=== PATIENT | male | born 1955 | race Caucasian/White ===

== ENCOUNTER 2017-09-27 06:44 | Observation (INO) ==
[2017-09-27] MEDS ORDERED: Hyoscyamine 0.5 MG/ML MLS IVP ONE (07:14)
[2017-09-27] MEDS ORDERED: *HR* HYDROmorphone (PF) 1 MG/ML SYRINGE IVP ONE ×2 (07:14→09:03)
[2017-09-27] MEDS ORDERED: Ketorolac 15 MG/ML VIAL IVP ONE (07:14)
[2017-09-27] MEDS ORDERED: Ondansetron 4 MG/2 ML VIAL IVP ONE ×2 (07:19→16:23)
--- NOTE | 2017-09-27 07:20 | Emergency Department Note ---
Disposition Clinical Impression: Acute cholecystitis Cholelithiasis Qualifiers: Cholelithiasis location: gallbladder Cholecystitis presence: with cholecystitis Cholecystitis acuity: acute Biliary obstruction: without biliary obstruction Qualified Code(s): K80.00 - Calculus of gallbladder with acute cholecystitis without obstruction Disposition: Admitted As Inpatient Condition: Fair Referrals: Dillan Thomas MD [Primary Care Provider] - Forms: ED Satisfaction Letter General Adult HPI - General Chief complaint: ED Chest Pain Stated complaint: CP/RUQ pain Time Seen by Provider: 09/27/17 07:13 Source: patient Limitations: no limitations Nursing Notes Reviewed: Yes Vital Signs Reviewed: Yes - History of Present Illness HPI Narrative: 62-year-old male who reports that he was awoken from sleep at 5 AM this morning with sudden onset of right upper quadrant pain. He states that the exact same thing happened a little over one week ago and it resolved on its own after about one hour. He did not seek medical attention. He still has his gallbladder and all of his other abdominal organs. His only past medical history is coronary arterial disease and has had a CABG. He has associated nausea and vomiting. He states he can point exactly where it is hurting in the right upper quadrant. Nothing makes it better or worse. He denies having a fever or any changes in his bowel movements or urination. Radiation: non-radiation Pain Severity: severe Pain Scale: 9 Consistency: constant Improves with: nothing Worsens with: nothing Associated symptoms: Reports: denies other symptoms Treatments Prior to Arrival: none - Related Data Home Medications Medication Instructions Recorded Confirmed Aspirin [Lo-Dose Aspirin EC] 81 mg PO DAILY 05/12/16 09/27/17 Atorvastatin [Lipitor] 40 mg PO HS 05/12/16 09/27/17 Carvedilol 12.5 mg PO BID 09/27/17 09/27/17 Lisinopril [Zestril] 5 mg PO DAILY 09/27/17 09/27/17 Multivits,Ca,Min/Iron/FA/Lycop 1 tab PO DAILY 09/27/17 09/27/17 [Centrum Men's Tablet] Mupirocin 1 appl TP BID 09/27/17 09/27/17 Nitroglycerin [Nitrostat] 0.4 mg SL Q5M PRN 09/27/17 09/27/17 Allergies Allergy/AdvReac Type Severity Reaction Status Date / Time No Known Allergies Allergy Verified 09/10/15 15:41 All systems ED: reviewed and negative except as stated. Constitutional: Denies: fever Eyes: Denies: vision change ENT ED: Denies: throat pain Cardiovascular: Denies: chest pain Respiratory: Denies: cough Gastrointestinal: Reports: abdominal pain, nausea, vomiting Genitourinary: Denies: dysuria Musculoskeletal: Denies: back pain Integumentary: Denies: rash Past Medical History - Past Medical History Medical history: Reports: non-contributory, hyperlipidemia, hypertension, myocardial infarction Surgical history: Reports: coronary bypass (CABG), orthopedic, other - Social History Smoking Status: Never smoker Smokeless Tobacco Status: No Alcohol use: Reports: rarely Drug use: Reports: none Physical Exam - General Limitations: no limitations General appearance: alert, in no apparent distress - Head Head exam: atraumatic - Eye Eye exam: Present: normal appearance, PERRL - ENT ENT exam: normal exam - Neck Neck exam: Present: normal inspection - Chest Chest inspection: Present: normal inspection - Respiratory Respiratory exam: Present: normal lung sounds bilaterally. Absent: respiratory distress - Cardiovascular Cardiovascular exam: Present: regular rate, normal rhythm - Abdominal Exam Abdominal exam: Present: soft, tenderness (Right upper quadrant), [place]'s sign , other (No diffuse abdominal pain or peritonitis). Absent: tenderness at McBurney's Point - Extremities Exam Extremities exam: Present: normal inspection - Neurological Exam Neurological exam: Present: alert, oriented X3 - Skin Skin exam: Present: warm, dry Course Course Narrative: U/S shows thickened gallbladder wall with stones/sludge. No elevate WBC count or fever. LFT's are normal aside from mild elevated alk phos. I called and spoke with Dr Cazares who will evaluate the patient. He is still having pain. Evaluated in the ED by Dr Cazares. Will be admitted to his service. Vital Signs Temperature 97.5 F L 09/27/17 06:45 Pulse Rate 77 09/27/17 06:45 Respiratory Rate 18 09/27/17 06:45 Blood Pressure 212/115 09/27/17 06:45 O2 Sat by Pulse Oximetry 97 09/27/17 06:45 Temperature 97.5 F L 09/27/17 06:45 Pulse Rate 77 09/27/17 09:40 Respiratory Rate 20 09/27/17 09:40 Blood Pressure 192/98 09/27/17 09:40 O2 Sat by Pulse Oximetry 98 09/27/17 09:40 Oxygen Delivery Oxygen Delivery Room Air Medical Decision Making - MDM Narrative Medical decision making narrative: I examined this patient and my medical decision-making was reviewed with the Resident Physician. I agree with the documented findings, disposition and treatment plan as described except to the extent set forth below. Patient seen and evaluated on arrival with Dr. Chavez, agree with his evaluation and treatment plan, I supervised the care of the patient stay. Patient presented this morning with right upper quadrant pain. He says it is difficult to be comfortable. He denies any chest pain at this time he is not vomiting no fever. Benadryl workup on him causing cardiac and abdominal workup and then reassess. He is in agreement with this plan. 0830 hrs.: Labs are back. Waiting on ultrasound. Gallbladder Ultrasound 09/27/17 07:14 IMPRESSION: Cholelithiasis. There is wall thickening of the gallbladder, either due to the contracted state of the gallbladder or wall thickening from underlying inflammatory change from acute or chronic cholecystitis Increased echogenicity throughout the liver suggesting diffuse hepatocellular disease such as fatty infiltration D/ / Eric Mejia MD / Eric Mejia MD Interpreting Provider: Eric Mejia MD 0920 hrs.: surgery is here to see the patient, Dr. Cazares is evaluating at bedside. Gen. 940 hours colon surgery is admitting the patient to their service. Impression as cholelithiasis, and acute right upper quadrant abdominal pain. - Medical Records Medical records reviewed: Yes I reviewed the patient's medical records. - Lab Data Lab results reviewed: Yes I reviewed the patient's lab results. Result diagrams: 09/27/17 06:51 09/27/17 06:51 Lab Results 09/27/17 09/27/17 09/27/17 Range/Units 06:51 06:51 07:52 WBC 9.0 (4.3-11.1) K/mcL RBC 6.11 H (4.19-5.50) M/mcL Hgb 17.4 H (12.9-16.9) g/dL Hct 52.4 H (37.5-50.1) % MCV 85.8 (83.0-100.0) fL MCH 28.5 (28.0-33.3) pg MCHC 33.2 (31.6-35.5) g/dL RDW 12.9 (11.5-14.5) % Plt Count 268 (140-400) K/mcL MPV 10.4 (9.4-12.4) fL Immature Gran % 0.3 (0-4) % Seg Neutrophils % 62.3 % Lymphocytes % 15.6 % Monocytes % 10.8 % Eosinophils % 10.0 % Basophils % 1.0 % Neutrophils # 5.6 (1.6-8.9) K/mcL Lymphocytes # 1.4 (0.6-4.6) K/mcL Monocytes # 1.0 (0.0-1.3) K/mcL Eosinophils # 0.9 H (0.0-0.6) K/mcL Basophils # 0.1 (0.0-0.2) K/mcL Sodium 141 (136-145) mEq/L Potassium 3.8 (3.5-4.5) mEq/L Chloride 103 (98-109) mEq/L Carbon Dioxide 29 (19-29) mEq/L BUN 18 (8-26) mg/dL Creatinine 0.94 (0.72-1.25) mg/dL Est GFR ( Amer) > 60 (> 60) Est GFR (Non-Af Amer) > 60 (> 60) BUN/Creatinine Ratio 19 (6-26) Glucose 124 H (70-99) mg/dL Calculated Osmolality 295 (280-300) Calcium 9.8 (8.6-10.8) mg/dL Total Bilirubin 1.0 (0.2-1.2) mg/dL Direct Bilirubin 0.4 (0.0-0.5) mg/dL Indirect Bilirubin 0.6 (0.0-1.2) mg/dL AST 32 (5-34) Units/L ALT 29 (0-55) Units/L Alkaline Phosphatase 140 H (38-126) Units/L Serum Total Protein 8.8 H (6.0-8.3) g/dL Albumin 4.0 (3.5-5.0) g/dL Globulin 4.8 H (2.4-3.5) g/dL Albumin/Globulin Ratio 0.8 L (1.1-2.2) Lipase 40 (8-78) Units/L Urine Color Yellow (Yellow) Urine Clarity Clear (Clear) Urine pH 6.5 (5.0-8.0) pH Units Ur Specific [place] 1.028 H (1.010-1.025) Urine Protein Negative (Neg-Trace) mg/dL Urine Glucose (UA) Normal (Normal) mg/dL Urine Ketones Trace H (Negative) mg/dL Urine Blood Negative (Negative) Urine Nitrite Negative (Negative) Urine Bilirubin Negative (Negative) Urine Urobilinogen Normal (Normal) mg/dL Ur Leukocyte Esterase Negative (Negative) Ur Culture Indicated? NO (NO) - Radiology Data Radiology results reviewed: Yes I reviewed the patient's radiology results. - EKG Data EKG #1 EKG attestation: Yes I reviewed and interpreted this EKG. EKG shows normal: sinus rhythm Rate: normal Rhythm: NSR [place]/QRS: normal When compared to previous EKG there are: no significant changes Interpretation: no acute changes
[2017-09-27 08:03] LABS: Bilirubin,Urine Negative (Negative); Blood,Urine Negative (Negative); Clarity,Urine Clear (Clear); Color,Urine Yellow (Yellow); Glucose,Urine (UA) Normal (Normal); Ketones,Urine Trace mg/dL (Negative); Leukocyte Esterase,Urine Negative (Negative); Nitrite,Urine Negative (Negative); PH,Urine 6.5 pH Units (5.0-8.0); Protein,Urine Negative (Neg-Trace); Specific Gravity,Urine 1.028 (1.010-1.025); Urobilinogen,Urine Normal (Normal)
[2017-09-27] MEDS ORDERED: Hyoscyamine SL 0.125 MG TAB.SUBL SL ONE (08:03)
[2017-09-27 08:08] LABS: Alanine Aminotransferase 29 Units/L (0-55); Albumin/Globulin Ratio 0.8 (1.1-2.2); Alkaline Phosphatase 140 Units/L (38-126); Aspartate Amino Transferase 32 Units/L (5-34); BUN/Creatinine Ratio 19 (6-26); Blood Urea Nitrogen 18 mg/dL (8-26); Calcium 9.8 mg/dL (8.6-10.8); Carbon Dioxide 29 mEq/L (19-29); Chloride 103 mEq/L (98-109); Globulin 4.8 g/dL (2.4-3.5); Glucose 124 mg/dL (70-99); Lipase 40 Units/L (8-78); Osmolality,Calculated 295 (280-300); Potassium 3.8 mEq/L (3.5-4.5); Sodium 141 mEq/L (136-145); Total Protein 8.8 g/dL (6.0-8.3); eGFR For African Americans > 60 (> 60); eGFR For Non-African Americans > 60 (> 60)
[2017-09-27 08:20] LABS: Basophils # 0.1 K/mcL (0.0-0.2); Eosinophils # 0.9 K/mcL (0.0-0.6); Hematocrit 52.4 % (37.5-50.1); Hemoglobin 17.4 g/dL (12.9-16.9); Immature Granulocytes % 0.3 % (0-4); Lymphocytes # 1.4 K/mcL (0.6-4.6); Lymphocytes % 15.6 %; Mean Corpuscular HGB Conc 33.2 g/dL (31.6-35.5); Mean Corpuscular Hemoglobin 28.5 pg (28.0-33.3); Mean Corpuscular Volume 85.8 fL (83.0-100.0); Mean Platelet Volume 10.4 fL (9.4-12.4); Monocytes % 10.8 %; Neutrophils # 5.6 K/mcL (1.6-8.9); Platelet Count 268 K/mcL (140-400); Red Blood Count 6.11 M/mcL (4.19-5.50); Red Cell Distribution Width 12.9 % (11.5-14.5); Segmented Neutrophils % 62.3 %
[2017-09-27 08:25] LABS: Bilirubin,Direct 0.4 mg/dL (0.0-0.5); Bilirubin,Indirect 0.6 mg/dL (0.0-1.2)
--- NOTE | 2017-09-27 11:27 | General Surg History&Physical ---
Date of Encounter: 09/27/17 Time of Encounter: 09:40 History of Present Illness Chief complaint: Acute right upper quadrant abdominal pain, biliary colic, cholelithiasis HPI: Mr. Mitchell is a 62 year old male referred after presenting to the emergency department with abrupt onset right upper quadrant abdominal pain with nausea and vomiting approximately 0500 hours today. The patient describes awakening from sleep in severe distress. The symptoms persisted prompting the patient to present to the emergency department for further evaluation and treatment. Ultrasound of the gallbladder showed cholelithiasis. The gallbladder wall was described as thickened to 10 mm without pericholecystic fluid. On my review of this imaging with [facility] demonstrated gallstones, minimally thickened gallbladder wall without pericholecystic fluid, no ductal dilatation. White count was 9.0 with a hemoglobin of 17.4 with hematocrit 52.4 consistent with the patient being dehydrated related to the nausea and vomiting accompanying his abdominal pain. Electrolytes, BUN, creatinine within normal limits. Bilirubin 0.4, AST 32, ALT 29, alkaline phosphatase 140. Past medical history: CAD with prior NM; status post CABG approximately 3-4 years ago; hypertension, hyperlipidemia; chronic back pain Surgical history: CABG as noted, rotator cuff repair, several back surgeries as well as nerve ablations for his chronic back pain; periumbilical hernia repair Allergies: No known drug allergies Medications: Aspirin 81 mg by mouth daily Atorvastatin 40 mg by mouth daily at bedtime Carvedilol 12.5 mg by mouth twice a day Lisinopril 5 mg by mouth daily Multivitamins 1 tablet daily Mupirocin one topical application twice a day Nitroglycerin 0.4 mg sublingually every 5 minutes as directed for chest pain Social history: Patient is , was with spell; he is currently a truck supervisor; he has never smoked; he denies rare alcohol consumption, no illicit drug use Physical examination: Age-appropriate male in distress related to persistent right upper quadrant abdominal pain. 1.75 m tall, 102.1 kg, BMI 33.2 Skin: Warm, no obvious jaundice Lungs: Clear to auscultation; no obvious pain on deep inspiration. Well- healed median sternotomy scar Cardiac: Regular rate, no appreciable murmurs. Abdomen: Tender in the right upper quadrant without discernible masses or hepatosplenomegaly; the rest of the abdomen was nontender. Active bowel sounds Extremities: No obvious clubbing, cyanosis, or edema. Impression: Right upper quadrant abdominal pain with nausea vomiting secondary to cholelithiasis, biliary colic. Pain only transiently controlled with IV narcotics. CAD with prior NM, status post CABG; hypertension, hyperlipidemia and chronic back pain Plan: Admit; maintain nothing by mouth, IV narcotic analgesics as needed. Laparoscopic cholecystectomy with possible intra operative cholangiogram , possible open cholecystectomy today The procedure was discussed in detail. Risks include hemorrhage, infection, intra-abdominal abscess, bile leak, injury to adjacent ducts, vessels , organs, bowel, cardiac risks such as dysrhythmia or recurrent NM, respiratory rate such as pneumonia or atelectasis, and postcholecystectomy diarrhea. Consent has been obtained. The patient's was present during my examination and discussion of the treatment plan. Past Med Surg Social Fam HX - Past Medical History Medical history: non-contributory, hyperlipidemia, hypertension, myocardial infarction - Past Surgical History Surgical History: coronary bypass (CABG), orthopedic, other - Social History Smoking Status: Never smoker Smokeless Tobacco Status: No Alcohol use: rarely Drug use: none Medications and Allergies Aspirin [Lo-Dose Aspirin EC] 81 mg PO DAILY 05/12/16 [History] Atorvastatin [Lipitor] 40 mg PO HS 05/12/16 [History] Carvedilol 12.5 mg PO BID 09/27/17 [History] Lisinopril [Zestril] 5 mg PO DAILY 09/27/17 [History] Multivits,Ca,Min/Iron/FA/Lycop [Centrum Men's Tablet] 1 tab PO DAILY 09/27/17 [ History] Mupirocin 1 appl TP BID 09/27/17 [History] Nitroglycerin [Nitrostat] 0.4 mg SL Q5M PRN 09/27/17 [History] 3 Allergy/AdvReac Type Severity Reaction Status Date / Time No Known Allergies Allergy Verified 09/10/15 15:41 Review of Systems All systems PM: A 10-system review of systems was performed and is negative for pertinent findings except as documented above in the HPI. General Surgery Exam Initial Vital Signs Temp Pulse Resp BP Pulse Ox 97.5 F L 77 18 212/115 97 09/27/17 06:45 09/27/17 06:45 09/27/17 06:45 09/27/17 06:45 09/27/17 06:45 Results - Labs 09/27/17 06:51 09/27/17 06:51 Abnormal lab results RBC 6.11 M/mcL (4.19-5.50) H 09/27/17 06:51 Hgb 17.4 g/dL (12.9-16.9) H 09/27/17 06:51 Hct 52.4 % (37.5-50.1) H 09/27/17 06:51 Eosinophils # 0.9 K/mcL (0.0-0.6) H 09/27/17 06:51 Glucose 124 mg/dL (70-99) H 09/27/17 06:51 Alkaline Phosphatase 140 Units/L (38-126) H 09/27/17 06:51 Serum Total Protein 8.8 g/dL (6.0-8.3) H 09/27/17 06:51 Globulin 4.8 g/dL (2.4-3.5) H 09/27/17 06:51 Albumin/Globulin Ratio 0.8 (1.1-2.2) L 09/27/17 06:51 Ur Specific [place] 1.028 (1.010-1.025) H 09/27/17 07:52 Urine Ketones Trace mg/dL (Negative) H 09/27/17 07:52 All other labs normal.
[2017-09-27] MEDS ORDERED: Ringers Solution, Lactated 500 ML IVC ONE ×2 (11:29→17:43)
[2017-09-27] MEDS ORDERED: Ondansetron 4 MG/2 ML VIAL IVP PRN ×2 (11:29→17:43)
[2017-09-27] MEDS ORDERED: *HR* HYDROmorphone (PF) 1 MG/ML SYRINGE IVP PRN ×3 (11:29→17:43)
[2017-09-27] MEDS ORDERED: Ringers Solution, Lactated 1,000 ML IVC SCH ×2 (11:30→17:43)
[2017-09-27] MEDS ORDERED: Nitroglycerin 0.4 MG TAB.SUBL SL PRN ×2 (11:32→17:43)
[2017-09-27] MEDS ORDERED: *HR* Succinylcholine 200 MG/10 ML VIAL IVP ONE (14:48)
[2017-09-27] MEDS ORDERED: Ondansetron 4 MG/2 ML VIAL ONE (14:48)
[2017-09-27] MEDS ORDERED: Lidocaine -MPF 4% 5 ML AMPUL ONE (14:48)
[2017-09-27] MEDS ORDERED: Dexamethasone 4 MG/ML VIAL ONE (14:48)
[2017-09-27] MEDS ORDERED: Lidocaine -MPF 2% 2 ML VIAL ONE (14:48)
[2017-09-27] MEDS ORDERED: *HR* Propofol 200 MG/20 ML VIAL IVP ONE (14:49)
[2017-09-27] MEDS ORDERED: *HR* FentaNYL (PF) 100 MCG/2 ML VIAL ONE (14:49)
--- NOTE | 2017-09-27 15:11 | Anesthesia Evaluation PreOp ---
Date of Encounter: 09/27/17 Time of Encounter: 15:09 - Past History Planned Operation: Lap. Zamzam Cardiac History: [place], HTN, Hyperlipidemia, Cardiac Surgery (3-4 years ago) Pulmonary History: Denies Any Significant HX IT SUPPORT ENGINEER History: Denies Any Significant HX Other Medical History: Denies Any Significant HX Anesthesia History: No Prior Anesthetic Complications, Past Anesthesia (CABG as noted, rotator cuff repair, several back surgeries as well as nerve ablations for his chronic back pain; periumbilical hernia repair) Alcohol Use: rarely Drug use: none Medications and Allergies Aspirin [Lo-Dose Aspirin EC] 81 mg PO DAILY 05/12/16 [History] Atorvastatin [Lipitor] 40 mg PO HS 05/12/16 [History] Carvedilol 12.5 mg PO BID 09/27/17 [History] Lisinopril [Zestril] 5 mg PO DAILY 09/27/17 [History] Multivits,Ca,Min/Iron/FA/Lycop [Centrum Men's Tablet] 1 tab PO DAILY 09/27/17 [ History] Mupirocin 1 appl TP BID 09/27/17 [History] Nitroglycerin [Nitrostat] 0.4 mg SL Q5M PRN 09/27/17 [History] 3 Allergy/AdvReac Type Severity Reaction Status Date / Time No Known Allergies Allergy Verified 09/10/15 15:41 - Meds/Allergy Pre-op Review Medications Reviewed: Yes Allergies Reviewed: Yes Beta Blockers on Current Med List: Yes If Beta Blockers taken, Date/Time (Last Dose taken): 14:49 09/27/2017 Anesthesia Results - Labs 09/27/17 06:51 09/27/17 06:51 Echo 11/19 EF-50% Mild Systolic and diastolic dysfunction No valvular dx - Imaging EKG: image reviewed (SR, RBBB) Anesthesia Exam O2 Sat Height 1.75 m Weight 102.058 kg O2 Sat by Pulse Oximetry 93 O2 Sat by Pulse Oximetry 93 O2 Sat by Pulse Oximetry 100 O2 Sat by Pulse Oximetry 99 O2 Sat by Pulse Oximetry 97 O2 Sat by Pulse Oximetry 97 Vital Signs Temp Pulse Resp BP Pulse Ox 97.5 F L 77 18 212/115 97 09/27/17 06:45 09/27/17 06:45 09/27/17 06:45 09/27/17 06:45 09/27/17 06:45 Vital Signs/O2 Sat, Most Current Temp Pulse Resp BP Pulse Ox 98.2 F 66 16 148/83 93 09/27/17 14:15 09/27/17 14:15 09/27/17 14:15 09/27/17 14:15 09/27/17 14:15 Height: 5'9'' Weight: 225# NPO (# of Hours): > 8 hrs Pain Scale: 0 Pain Scale Used: Numeric (1 - 10) - HEENT Pupil (Motor): Pupils equal, EOMI - IT SUPPORT ENGINEER LOC: Oriented IT SUPPORT ENGINEER Motor: Normal RUE, Normal LUE, Normal RLE, Normal LLE, Normal Face IT SUPPORT ENGINEER Sensory: Normal: RUE, LUE, RLE, LLE, Face - Cardiac Rhythm: Regular Murmur: None JVD: No Carotid Bruit: No - Pulmonary Breath Sounds: bilateral Clear Respiratory Effort: Symmetrical Anesthesia Assess/Plan ASA Score: 3 Modified Kp Scale for Level of Consciousness: Cooperative, oriented, and tranquil Anesthetic Plan: General Autologous Blood: Yes Monitoring Plan: Standard Monitors Recovery Plan: PACU
[2017-09-27] MEDS ORDERED: Bupivacaine/EPI 1:200k 0.25%PF 30 ML VIAL ONE (15:32)
[2017-09-27] MEDS ORDERED: EPHEDrine 50 MG/ML VIAL ONE (16:13)
[2017-09-27] MEDS ORDERED: Neostigmine Methylsulfate 3 MG/3 ML SYRINGE ONE (16:20)
[2017-09-27] MEDS ORDERED: *HR* Promethazine 25 MG/ML VIAL IVP PRN (16:23)
[2017-09-27] MEDS ORDERED: *HR* Metoprolol 5 MG/5 ML VIAL IVP ONE ×2 (16:28)
[2017-09-27] MEDS ORDERED: ceFAZolin 2,000 MG in Water for inj. (sterile) 20 ML IVP ONE (16:47)
--- NOTE | 2017-09-27 17:31 | Operative Note ---
Date of procedure: 09/27/17 Pre-op diagnosis: Cholecystitis cholelithiasis Post-op diagnosis: same Procedure: Laparoscopic cholecystectomy, attempted intraoperative cholangiogram Complications: None apparent Anesthesia: GETA Local Anesthetics: 0.25% Sensorcaine HCL with Epinephrine 1:200,000 SubQ (cc) ( 30 mL) Surgeon: Rico Cazares Estimated blood loss (cc): 50 IV fluids (cc): 1,500 Specimen: gallbladder Condition: stable Disposition: PACU Procedure in Detail: The patient was brought to the operating room where he was placed supine upon the operating room table. The patient was appropriately identified as to person and procedure. The accuracy of this information was confirmed by the procedure team. Operative consent had been obtained preoperatively. The patient was then intubated and anesthetized under the supervisioin of Dr Triston Mata. The abdomen was prepped and draped in the usual sterile fashion. Several milliliters of 0.25% bupivacaine with 1-200,000 units of epinephrine was infiltrated into the infra umbilical skin. A small transverse incision was made, dissection was carried to the fascia. The fascia was grasped and elevated. Additional bupivacaine with epinephrine was infiltrated before the fascia was incised. An 11 mm Xcel Port was established. The rigid laparoscope was placed within the obturator to visualize passage through the layers of the anterior abdominal wall. When the abdominal cavity was accessed, the obturator was replaced by the rigid laparoscope, the abdomen was insufflated with gaseous carbon dioxide. There was no obvious visible injury from establishing the port. Under direct visualization, 3 additional ports were placed along the right costal margin in the subxiphoid, midclavicular, and anterior axillary lines. Each site was infiltrated with 0.25% bupivacaine with 1-200,000 epinephrine. The gallbladder was tensely distended with omentum densely adherent to it. I was able to aspirate approximately 55 mL of thick dark bile which effectively decompressed the gallbladder. The gallbladder was grasped and the omentum dissected from the gallbladder. This facilitated exposure and dissection of the hepatoduodenal ligament. A short cystic duct was identified and skeletonized. The cystic duct was clipped near the infundibulum of the gallbladder. Via a separate percutaneous insertion site, a Taut cholangiogram catheter was introduced. The cystic duct was incised but I was unable to insert the cholangiogram catheter as the caliber of the duct was too small. I abandoned my efforts to obtain an intraoperative cholangiogram. The anatomy was fairly well visualized. The cystic duct was clipped and divided. The cystic artery was identified posterior to the gallbladder, clipped and divided. The gallbladder was dissected from the liver bed using the Ethicon harmonic toni. Once from the liver bed, the gallbladder was placed in endoscopic pouch and removed through the infraumbilical opening. Several stones were evident within the gallbladder. The specimen was collected and sent to pathology The liver bed was inspected for adequate hemostasis which was deemed adequate. The pneumoperitoneum was evacuatedcand the instrumentation removed. The fascia of the infraumbilical opening was closed with interrupted [id number] 0 Vicryl using S retractors. Port sites were closed with running cuticular 4-0 Vicryl. The incisions were sealed with Dermabond dermal adhesive. The patient was taken to recovery in stable condition. Needle, sponge, and ensuing counts were correct at the close of the case. Total volume of 0.25% bupivacaine with 1-200,000 epinephrine used during this procedure, 30 mL.
[2017-09-27] MEDS ORDERED: Acetaminophen 325 MG TABLET PO PRN (17:43)
--- NOTE | 2017-09-27 17:48 | Anesthesia Evaluation Post Op ---
Date of Encounter: 09/27/17 Time of Encounter: 17:48 - Vital Signs Vital Signs: Vital Signs/O2 Sat, Most Current Temp Pulse Resp BP Pulse Ox 97.8 F 64 20 170/94 91 09/27/17 17:17 09/27/17 17:40 09/27/17 17:40 09/27/17 17:40 09/27/17 17:40 - Lungs Lungs: Clear Ascult./Percussion - Airway Airway: Non-obstructed - Cardiovascular Regular Rate - Mental Status Mental Status: Alert & Oriented, Answers Appropriately - Pain Pain Scale: 0 Pain Scale used: Numeric (1 - 10) - Nausea Vomiting Nausea Vomiting: Not Present - Hydration Hydration: NPO, Has not voided - Discharge PostOp Status: Transfer Patient to floor
[2017-09-28] MEDS: *HR* OxyCODONE/APAP 5/325 TABLET PO PRN ×2 (00:20→10:18)
[2017-09-28 06:46] VITALS: BP 111/67
[2017-09-28 07:22] LABS: Basophils % 0.1 %; Hematocrit 40.1 % (37.5-50.1); Immature Granulocytes % 0.3 % (0-4); Lymphocytes # 1.1 K/mcL (0.6-4.6); Lymphocytes % 7.6 %; Mean Corpuscular HGB Conc 33.4 g/dL (31.6-35.5); Mean Corpuscular Hemoglobin 28.5 pg (28.0-33.3); Mean Corpuscular Volume 85.1 fL (83.0-100.0); Mean Platelet Volume 9.7 fL (9.4-12.4); Monocytes # 1.2 K/mcL (0.0-1.3); Monocytes % 8.6 %; Neutrophils # 11.9 K/mcL (1.6-8.9); Platelet Count 213 K/mcL (140-400); Red Blood Count 4.71 M/mcL (4.19-5.50); Red Cell Distribution Width 13.1 % (11.5-14.5); Segmented Neutrophils % 83.4 %
[2017-09-28 07:32] LABS: Hemoglobin 13.4 g/dL (12.9-16.9)
[2017-09-28 07:39] LABS: Alanine Aminotransferase 24 Units/L (0-55); Albumin/Globulin Ratio 0.8 (1.1-2.2); Alkaline Phosphatase 93 Units/L (38-126); Aspartate Amino Transferase 26 Units/L (5-34); BUN/Creatinine Ratio 15 (6-26); Bilirubin,Total 0.9 mg/dL (0.2-1.2); Blood Urea Nitrogen 10 mg/dL (8-26); Calcium 8.8 mg/dL (8.6-10.8); Carbon Dioxide 28 mEq/L (19-29); Chloride 102 mEq/L (98-109); Globulin 3.6 g/dL (2.4-3.5); Glucose 130 mg/dL (70-99); Osmolality,Calculated 283 (280-300); Potassium 4.1 mEq/L (3.5-4.5); Sodium 136 mEq/L (136-145); eGFR For African Americans > 60 (> 60); eGFR For Non-African Americans > 60 (> 60)
[2017-09-28 07:46] LABS: Albumin 2.8 g/dL (3.5-5.0); Total Protein 6.4 g/dL (6.0-8.3)
[2017-09-28] MEDS ORDERED: Multivit/Ca/Min/Fe/FA 1 TAB TABLET PO SCH (09:00)
--- NOTE | 2017-09-28 10:53 | General Surgery Progress Note ---
Date of Encounter: 09/28/17 Time of Encounter: 10:47 Subjective Patient reports: feels better Narrative: General Surgery - POD#1 Patient feeling much improved from preoperative state; describes minimal mid abdominal pain but the acute right upper quadrant abdominal pain with which the patient presented has resolved. Patient is afebrile, 98.1, pulse 71, respirations 14, blood pressure 111/67. SPO2 on room air 92-95% Lungs: Clear to auscultation; no obvious abdominal pain with deep inspiration Cardiac: Regular rate, no appreciable murmurs Abdomen: Slightly protuberant with minimal infraumbilical tenderness. Active bowel sounds. Port sites clean and dry. Patient is tolerating a regular diet, no nausea or vomiting. Postoperative labs: White count 14.3, hemoglobin 13.4, hematocrit 40.1; neutrophils 11.9%. The leukocytosis and neutrophilia likely reactive to surgery and expected to resolve without further intervention or difficulty. Electrolytes, BUN, creatinine within normal limits. LFTs within normal limits - elevated alkaline phosphatase resolved. Impression: Acute cholecystitis cholelithiasis with biliary colic - postoperative day 1, status post laparoscopic cholecystectomy Preoperative dehydration - corrected Acceptable postoperative status Plan: Discharge home Follow up office, , 10/03/17; patient to call office Saturday a.m. to make this appointment Instructions: Regular diet Activity as tolerated, lifting limited to less than 20 pounds Patient may shower, wash incisions with soap and water Tylenol, ibuprofen, Motrin, Advil, etc. as needed for pain Prescription for hydrocodone/acetaminophen 5/325, #8, and every 6 hours as needed for pain not relieved by [id number] medications Objective Vital Signs - Last 8 Hours Temp Pulse Resp BP Pulse Ox 09/28/17 06:45 98.1 F 71 14 111/67 95 09/28/17 03:34 98.3 F 82 18 100/63 92 Intake and Output 09/27/17 09/28/17 09/28/17 23:59 07:59 15:59 Intake Total 20 / 20 0 / 0 Output Total 50 / 50 0 / 0 Balance -30 / -30 0 / 0 Intake: IV Fluids 20 / 20 Ancef 2,000 MG In Water for inj 20 / 20 . (sterile) 20 ML @ 200 mls/hr IVP ONCE ONE Rx#:[id number] Oral 0 / 0 Output: Urine 0 / 0 Estimated Blood Loss 50 / 50 Other: Meal npo # Voids 1 - Labs 09/28/17 07:13 09/28/17 07:13 Diabetes panel 09/28/17 Range/Units 07:13 Sodium 136 (136-145) mEq/L Potassium 4.1 (3.5-4.5) mEq/L Chloride 102 (98-109) mEq/L Carbon Dioxide 28 (19-29) mEq/L BUN 10 (8-26) mg/dL Creatinine 0.68 L (0.72-1.25) mg/dL Glucose 130 H (70-99) mg/dL Calcium 8.8 (8.6-10.8) mg/dL AST 26 (5-34) Units/L ALT 24 (0-55) Units/L Alkaline Phosphatase 93 (38-126) Units/L Albumin 2.8 L D (3.5-5.0) g/dL Calcium panel 09/28/17 Range/Units 07:13 Calcium 8.8 (8.6-10.8) mg/dL Albumin 2.8 L D (3.5-5.0) g/dL Pituitary panel 09/28/17 Range/Units 07:13 Sodium 136 (136-145) mEq/L Potassium 4.1 (3.5-4.5) mEq/L Chloride 102 (98-109) mEq/L Carbon Dioxide 28 (19-29) mEq/L BUN 10 (8-26) mg/dL Creatinine 0.68 L (0.72-1.25) mg/dL Glucose 130 H (70-99) mg/dL Calcium 8.8 (8.6-10.8) mg/dL Adrenal panel 09/28/17 Range/Units 07:13 Sodium 136 (136-145) mEq/L Potassium 4.1 (3.5-4.5) mEq/L Chloride 102 (98-109) mEq/L Carbon Dioxide 28 (19-29) mEq/L BUN 10 (8-26) mg/dL Creatinine 0.68 L (0.72-1.25) mg/dL Glucose 130 H (70-99) mg/dL Calcium 8.8 (8.6-10.8) mg/dL Total Bilirubin 0.9 (0.2-1.2) mg/dL AST 26 (5-34) Units/L ALT 24 (0-55) Units/L Alkaline Phosphatase 93 (38-126) Units/L Albumin 2.8 L D (3.5-5.0) g/dL - VTE Documentation of Mechanical Device: Intermittent pneumatic compression device Consult Discharge Plan - Plan Referrals: Dillan Thomas MD [Primary Care Provider] -
--- NOTE | 2017-09-28 10:58 | Discharge Summary ---
Outpatient Proc Discharge Plan - Plan Additional Instructions: Regular diet Activity as tolerated, lifting limited to less than 20 pounds Patient may shower, wash incision with soap and water Tylenol, ibuprofen, Motrin, Advil, Aleve, etc. as needed for pain Prescription for hydrocodone with acetaminophen 5/325, #8, 1 every 6 hours as needed for pain not relieved by [id number] medications Patient to contact my office immediately if there are any fevers, chills, nausea , vomiting, or increasing abdominal pain Follow-up appointment, , 10/03/17. Patient to call office Saturday a.m. to make this appointment. Prescriptions: HYDROcodone/Acet 5/325 mg [[place] 5-325 mg] 1 tab PO Q6H PRN #8 tab PRN Reason: Pain Home Medications: Aspirin [Lo-Dose Aspirin EC] 81 mg PO DAILY 05/12/16 [History] Atorvastatin [Lipitor] 40 mg PO HS 05/12/16 [History] Carvedilol 12.5 mg PO BID 09/27/17 [History] Lisinopril [Zestril] 5 mg PO DAILY 09/27/17 [History] Multivits,Ca,Min/Iron/FA/Lycop [Centrum Men's Tablet] 1 tab PO DAILY 09/27/17 [ History] Mupirocin 1 appl TP BID 09/27/17 [History] Nitroglycerin [Nitrostat] 0.4 mg SL Q5M PRN 09/27/17 [History] Acetaminophen [Tylenol] 650 mg PO Q6HR PRN tablet 09/28/17 [Rx] HYDROcodone/Acet 5/325 mg [[place] 5-325 mg] 1 tab PO Q6H PRN #8 tab 09/28/17 [Rx]
--- NOTE | 2017-09-30 19:12 | Electrocardiograph Report ---
[place] [id number] Test Date: 2017-09-27 Pat Name: Edi Mitchell Department: 104 Room: 3A44 Gender: Cage Cashier: : 1955 Requested By: Toñito Chavez Order Number: [id number] Reading MD: Salazar Peterson MD Measurements Intervals [place] Rate: 65 P: 42 UT: 186 QRS: 16 QRSD: 178 T: 46 QT: 429 QTc: 441 Interpretive Statements SINUS RHYTHM WITH SINUS ARRHYTHMIA LEFT ATRIAL ENLARGEMENT RIGHT BUNDLE BRANCH BLOCK INFERIOR MYOCARDIAL INFARCTION, PROBABLY OLD Electronically Signed On 09-30-2017 19:11:06 EST by Salazar Peterson MD
== END 2017-09-28 11:30 | disposition home or self-care (01) ==
LOC: 3ANU 06:44 → EMEROO 06:44 → 3ANU 11:28
PROVIDERS: ADMIT Surgery; ATTEND Surgery

== ENCOUNTER 2021-03-12 19:17 | Observation (INO) ==
[2021-03-12 20:28] LABS: Basophils # 0.1 K/mcL (0.0-0.2); Basophils % 0.7 %; Eosinophils # 1.2 K/mcL (0.0-0.6); Hematocrit 49.1 % (37.5-50.1); Hemoglobin 16.2 g/dL (12.9-16.9); Immature Granulocytes % 0.4 % (0-4); Lymphocytes # 1.3 K/mcL (0.6-4.6); Lymphocytes % 12.5 %; Mean Corpuscular Hemoglobin 29.2 pg (28.0-33.3); Mean Corpuscular Volume 88.5 fL (83.0-100.0); Mean Platelet Volume 9.5 fL (9.4-12.4); Monocytes # 0.8 K/mcL (0.0-1.3); Monocytes % 7.3 %; Neutrophils # 7.3 K/mcL (1.6-8.9); Platelet Count 235 K/mcL (140-400); Red Blood Count 5.55 M/mcL (4.19-5.50); Segmented Neutrophils % 68.1 %; White Blood Count 10.7 K/mcL (4.3-11.1)
[2021-03-12 20:47] LABS: Albumin 4.2 g/dL (3.5-5.7); Albumin/Globulin Ratio 1.4 (1.1-2.2); Bilirubin,Direct 0.1 mg/dL (0.0-0.2); Bilirubin,Indirect 0.7 mg/dL (0.0-1.0); Bilirubin,Total 0.8 mg/dL (0.3-1.0); Globulin 2.9 g/dL (2.4-3.5); Total Protein 7.1 g/dL (6.4-8.9)
[2021-03-12 20:49] LABS: BUN/Creatinine Ratio 18 (6-26); Blood Urea Nitrogen 12 mg/dL (8-23); Calcium 9.6 mg/dL (8.6-10.3); Carbon Dioxide 28 mEq/L (23-29); Chloride 102 mEq/L (98-107); Glucose 110 mg/dL (70-105); Osmolality,Calculated 284 (280-300); Sodium 137 mEq/L (136-145); eGFR For African Americans > 60 (> 60); eGFR For Non-African Americans > 60 (> 60)
[2021-03-12 20:50] LABS: Troponin I < 0.03 ng/mL (< 0.04)
[2021-03-12] MEDS ORDERED: Ondansetron 4 MG/2 ML VIAL IVP PRN (20:57)
[2021-03-12] MEDS ORDERED: Melatonin 3 MG TABLET PO PRN (20:57)
[2021-03-12] MEDS ORDERED: Naloxone 0.4 MG/ML INJ IVP PRN (20:57)
[2021-03-13] MEDS ORDERED: Perflutren Lipid Microsphere 1.3 ML in 0.9 % Sodium Chloride 8.7 ML IVP PRN (01:41)
[2021-03-13] MEDS ORDERED: Nitroglycerin 0.4 MG TAB.SUBL SL PRN (01:41)
[2021-03-13 02:23] LABS: Basophils # 0.1 K/mcL (0.0-0.2); Basophils % 0.9 %; Eosinophils # 1.3 K/mcL (0.0-0.6); Eosinophils % 14.1 %; Hematocrit 46.5 % (37.5-50.1); Hemoglobin 15.3 g/dL (12.9-16.9); Immature Granulocytes % 0.3 % (0-4); Lymphocytes # 1.7 K/mcL (0.6-4.6); Lymphocytes % 18.6 %; Mean Corpuscular HGB Conc 32.9 g/dL (31.6-35.5); Mean Corpuscular Hemoglobin 28.8 pg (28.0-33.3); Mean Corpuscular Volume 87.6 fL (83.0-100.0); Mean Platelet Volume 9.6 fL (9.4-12.4); Monocytes % 10.6 %; Neutrophils # 5.2 K/mcL (1.6-8.9); Platelet Count 202 K/mcL (140-400); Red Blood Count 5.31 M/mcL (4.19-5.50); Red Cell Distribution Width 12.1 % (11.5-14.5); Segmented Neutrophils % 55.5 %; White Blood Count 9.3 K/mcL (4.3-11.1)
[2021-03-13 02:40] LABS: BUN/Creatinine Ratio 21 (6-26); Blood Urea Nitrogen 12 mg/dL (8-23); Calcium 8.9 mg/dL (8.6-10.3); Carbon Dioxide 28 mEq/L (23-29); Chloride 104 mEq/L (98-107); Glucose 119 mg/dL (70-105); Osmolality,Calculated 285 (280-300); Potassium 3.9 mEq/L (3.5-5.1); Sodium 137 mEq/L (136-145); eGFR For African Americans > 60 (> 60); eGFR For Non-African Americans > 60 (> 60)
[2021-03-13] MEDS ORDERED: Morphine Sulfate 2 MG/ML SYRINGE IVP PRN (02:50)
[2021-03-13] MEDS: *HR* Heparin 5,000 UNIT/ML VIAL SQ SCH ×2 (05:03→12:27)
[2021-03-13 06:03] LABS: Estimated Average Glucose 123 mg/dl; Hemoglobin A1C 5.9 %
[2021-03-13 06:19] LABS: Chol/HDL Ratio 3.6 (0-4.9)
[2021-03-13] MEDS ORDERED: Regadenoson 0.4 MG/5 ML SYRINGE IVP ONE (06:21)
[2021-03-13 06:31] LABS: Thyroid Stimulating Hormone 1.251 mcIU/mL (0.340-5.600)
[2021-03-13] MEDS ORDERED: lisinopriL 5 MG TABLET PO SCH (09:00)
[2021-03-13] MEDS ORDERED: Aspirin Enteric Coated 81 MG Tablet PO SCH (09:00)
[2021-03-13] MEDS ORDERED: ISOVUE-370 200 ML INFUS..BTL ONE (13:20)
[2021-03-13] MEDS ORDERED: Nitroglycerin 1,000 MCG/5 ML VIAL IV ONE (13:20)
[2021-03-13] MEDS ORDERED: Heparin 1,000 UNITS/500 mL 500 ML ONE (13:20)
[2021-03-13] MEDS ORDERED: 0.9 % Sodium Chloride 2,000 ML ONE (13:20)
[2021-03-13] MEDS ORDERED: *HR* Heparin 10,000 UNIT/10 ML VIAL ONE (13:20)
[2021-03-13] MEDS ORDERED: *HR* FentaNYL (PF) 100 MCG/2 ML VIAL ONE (13:31)
[2021-03-13] MEDS ORDERED: *HR* Midazolam HCl 2 MG/2 ML VIAL ONE (13:31)
[2021-03-13] MEDS ORDERED: Nitroglycerin Spray 4.9 GM BOTTLE ONE (14:02)
[2021-03-13] MEDS ORDERED: *HR* Labetalol 100 MG/20 ML MDV ONE (14:26)
[2021-03-13 15:59] VITALS: BP 125/81
[2021-03-13] MEDS ORDERED: carvediloL 6.25 MG TABLET PO SCH ×2 (21:00)
[2021-03-14] MEDS ORDERED: lisinopriL 20 MG TABLET PO SCH (09:00)
== END 2021-03-13 17:30 | disposition home or self-care (01) ==
LOC: EMEROOARM 19:17 → 3BNU 19:17 → SUATTDRO 21:08 → 3BNU 21:59
PROVIDERS: ADMIT Internal Medicine; ATTEND Internal Medicine